=== PATIENT | male | born 1980 | race Caucasian/White ===

== ENCOUNTER 2019-03-07 09:20 | Emergency (ER) | payer OTHER ==
[2019-03-07 09:29] VITALS: BP 120/80; PULSE 110; TEMP 98.4; BMI 29.9
[2019-03-07] MEDS ORDERED: ONDANSETRON *ODT* 4 MG TABLET SL ONE (10:27)
[2019-03-07] MEDS ORDERED: ONDANSETRON *ODT* 4 MG TABLET ONE (10:29)
--- NOTE | 2019-03-07 10:36 | PDOC ---
History of Present Illness - General Chief Complaint: Cold Symptoms Stated Complaint: NOT FEELING WELL/ NAUSEOUS Time Seen by Provider: 03/07/19 09:56 History Source: Patient Exam Limitations: Clinical Condition - History of Present Illness Initial Comments: 03/07/19 10:37 Patient with no significant past medical history present with complaint of five- day history of body aches, nasal congestion, chills and now with nausea since today. Patient reported children were sick a week ago with same symptoms which she history of down to ER and went diagnosed with viral syndrome. Patient denies vomiting, fever, cough, shortness of breath, chest pain, dizziness or weakness. Denies any other symptoms Timing/Duration: other (5 days) Past History - Past Medical History Allergies/Adverse Reactions: Allergies Allergy/AdvReac Type Severity Reaction Status Date / Time No Known Allergies Allergy Verified 03/07/19 09:29 Home Medications: Ambulatory Orders Ondansetron [Zofran *Odt*] 4 mg SL TID PRN #21 od.tablet 03/07/19 COPD: No - Suicide/Smoking/Psychosocial Hx Smoking History: Never smoked Information on smoking cessation initiated: No Hx Alcohol Use: No Drug/Substance Use Hx: No Review of Systems - Review of Systems Able to Perform ROS?: Yes Is the patient limited Indonesian proficient: No Constitutional: Yes: Malaise. No: Chills, Fever, Weakness HEENTM: Yes: Symptoms Reported, See HPI, Nose Congestion. No: Eye Pain, Blurred Vision, Tearing, Recent change in vision, Double Vision, Cataracts, Ear Pain, Ocular Prothesis, Ear Discharge, Nose Pain, Tinnitus, Nose Bleeding, Hearing Loss, Throat Pain, Throat Swelling, Mouth Pain, Dental Problems, Difficulty Swallowing, Mouth Swelling, Other Respiratory: No: Symptoms reported, See HPI, Cough, Orthopnea, Shortness of Breath, SOB with Exertion, SOB at Rest, Stridor, Wheezing, Productive cough, Hemoptysis, Other Cardiac (ROS): No: Symptoms Reported, See HPI, Chest Pain, Edema, Irregular Heart Rate, Lightheadedness, Palpitations, Syncope, Chest Tightness, Other ABD/GI: Yes: See HPI, Nausea. No: Symptoms Reported, Abdominal Distended, Abd. Pain w/ defecation, Blood Streaked Bowels, Constipated, Diarrhea, Difficulty Swallowing, Rectal Bleeding, Vomiting, Abdominal cramping Musculoskeletal: No: Symptoms Reported Integumentary: No: Symptoms Reported Neurological: No: Symptoms reported, Dizziness All Other Systems: Reviewed and Negative *Physical Exam - Vital Signs Last Vital Signs Temp Pulse Resp BP Pulse Ox 98.4 F 110 H 18 120/80 100 03/07/19 09:27 03/07/19 09:27 03/07/19 09:27 03/07/19 09:27 03/07/19 09:27 - Physical Exam Comments: 03/07/19 10:41 GENERAL: Well developed, well nourished. Awake and alert. No acute distress. HEENT: Normocephalic, atraumatic. PERRLA, EOMI. No conjunctival pallor. Sclera are non-icteric. Moist mucous membranes. Oropharynx is clear. NECK: Supple. Full ROM. CARDIOVASCULAR: Regular rate and rhythm. No murmurs, rubs, or gallops. Distal pulses are 2+ and symmetric. PULMONARY: No evidence of respiratory distress. Lungs clear to auscultation bilaterally. No wheezing, rales or rhonchi. ABDOMINAL: Soft. Non-tender. Non-distended. No rebound or guarding. No organomegaly. Normoactive bowel sounds. MUSCULOSKELETAL Normal range of motion at all joints. SKIN: Warm and dry. Normal capillary refill. No rashes. NEUROLOGICAL: Alert, awake, appropriate. Gait is normal without ataxia. PSYCHIATRIC: Cooperative. Good eye contact. Appropriate mood General Appearance: Yes: Nourished, Appropriately Dressed. No: Apparent Distress Medical Decision Making - Medical Decision Making 03/07/19 10:39 Patient with no significant past medical history present with complaint of five- day history of body aches, nasal congestion, chills and now with nausea since today. Patient reported children were sick a week ago with same symptoms which she history of down to ER and went diagnosed with viral syndrome. Patient denies vomiting, fever, cough, shortness of breath, chest pain, dizziness or weakness. Denies any other symptoms Clinical exam unremarkable with normal lung exam and normal cardio exam. Patient afebrile. Reported body aches as improved today. Symptoms likely viral syndrome. Patient states for discharge with outpatient management with nausea with Zofran with advised to increase fluid intake and take Tylenol or Motrin as needed for headaches with follow-up to PCP *DC/Admit/Observation/Transfer Diagnosis at time of Disposition: Viral syndrome, Nausea alone - Discharge Dispostion Disposition: HOME Condition at time of disposition: Stable Decision to Admit order: No - Prescriptions Prescriptions: Ondansetron [Zofran *Odt*] 4 mg SL TID PRN #21 od.tablet PRN Reason: nausea - Referrals - Patient Instructions Printed Discharge Instructions: DI for Viral Upper Respiratory Infection -- Adult Additional Instructions: Take prescribed medication as needed for nausea. Increase fluid intake. Take Tylenol as needed for headache - Post Discharge Activity
== END 2019-03-07 10:42 | disposition home or self-care (01) ==
LOC: JERFT 09:20
DX: B34.9 Viral infection, unspecified (principal)
CPT/HCPCS: 99281-25; Q0162